=== PATIENT | female | born 1960 | race African-American/Black ===

== ENCOUNTER → 2022-08-06 | Day surgery (SDC) | payer BC | END | disposition home or self-care (01) | LOC: FMAMMOTONE 08:26 | PROVIDERS: ATTEND Family Medicine | PROC: 0HBT3ZX Excision of Right Breast, Percutaneous Approach, Diagnostic (ICD-10-PCS; principal; 2022-08-06) | DX: N60.81 Other benign mammary dysplasias of right breast (principal); D24.1 Benign neoplasm of right breast | CPT/HCPCS: 19081; 76098-TC-FY; 88305-TC ==